=== PATIENT | male | born 1935 | race Caucasian/White ===

== ENCOUNTER 2017-08-16 08:46 | Outpatient (CLI) | payer MEDICARE, OTHER ==
--- NOTE | 2017-08-16 11:35 | XRAY Report ---
THREE-VIEW RIGHT SHOULDER: 08/16/2017 CLINICAL INDICATION: Biceps tendinitis. FINDINGS: Internal and external rotational views and a scapular Y view of the right shoulder demonst rate moderate glenohumeral and acromioclavicular osteoarthritis. There is no evidence of acute fract ure or dislocation. No radiopaque foreign body is seen in the soft tissues. IMPRESSION: MODERATE OSTEOARTHRITIS. JOB #: [id number] EXT JOB #:[id number]
--- NOTE | 2017-08-16 11:54 | Ultrasound Report ---
ULTRASOUND RIGHT LATERAL ABDOMINAL WALL: 08/16/2017 CLINICAL INDICATION: Swelling, mass. TECHNIQUE: Real-time scanning was performed with insurance healthcare representative static images obtained. FINDINGS: Ultrasound of the region of swelling identified by the patient was performed. There is no evidence of mass. Bowel gas obscures visualization. This may represent a large, wide-necked hernia , too large to image by ultrasound. If clinically warranted, CT may be helpful. IMPRESSION: NO DEFINITE EVIDENCE OF MASS. BOWEL GAS DOES LIMIT EVALUATION OF DEEPER STRUCTURES. TH IS MAY REPRESENT A LARGE, WIDE-MOUTHED HERNIA, TOO LARGE TO IMAGE BY ULTRASOUND. CT MAY BE HELPFUL I N FURTHER EVALUATION, IF CLINICALLY WARRANTED. JOB #: [id number] EXT JOB #:[id number]
== END 2017-08-16 08:47 | disposition home or self-care (01) ==
LOC: DI 08:46
PROVIDERS: ATTEND Internal Medicine
DX: R19.03 Right lower quadrant abdominal swelling, mass and lump (principal); M19.011 Primary osteoarthritis, right shoulder
CPT/HCPCS: 76705

== ENCOUNTER 2018-11-03 09:13 | Outpatient (CLI) | payer MEDICARE, OTHER ==
[2018-11-03] MEDS: BARIUM SULFATE 148 GM POWDER PO ONE ×3 (10:12→11:17)
[2018-11-03] MEDS ORDERED: BARIUM SULFATE 454 GM TUBE PO ONE (10:12)
--- NOTE | 2018-11-05 16:07 | XRAY Report ---
Reason: INTERMITTENT ASPIRATION Procedure Date: 11/03/2018 Accession Number: [id number] / [id number] Procedure: FL - Modified Barium Swallow W/SP CPT Code: FULL RESULT: EXAM: Modified Barium Swallow W/SP DATE: 11/03/2018 9:54 AM CLINICAL HISTORY: INTERMITTENT ASPIRATION COMPARISON: None. TECHNIQUE: Under the direction of speech pathology, patient swallowed various consistencies of barium under lateral fluoroscopic observation of the neck. Fluoroscopic exposure time: 0.52 minutes. Number of fluoroscopic images: 5 loops of cine fluoroscopy recorded. FINDINGS: Airway Protection: Normal epiglottic motion. No episodes of tracheal penetration or aspiration with all consistencies of barium. Other: None. Please also refer to full report from Speech Pathology. IMPRESSION: Normal modified barium swallow. No aspiration identified. RADIA
== END 2018-11-03 09:14 | disposition home or self-care (01) ==
LOC: DI 09:13
PROVIDERS: ATTEND Internal Medicine
DX: T17.928A Food in respiratory tract, part unspecified causing other injury, initial encounter (principal)
CPT/HCPCS: 74230; 92611; G8996; G8997; G8998

== ENCOUNTER 2020-04-22 07:46 | Outpatient (CLI) | payer MEDICARE, OTHER | END 2020-04-22 07:47 | disposition home or self-care (01) | LOC: DI 07:46 | PROVIDERS: ATTEND Internal Medicine | DX: I34.0 Nonrheumatic mitral (valve) insufficiency (principal); I37.1 Nonrheumatic pulmonary valve insufficiency; I27.20 Pulmonary hypertension, unspecified; I28.8 Other diseases of pulmonary vessels | CPT/HCPCS: 93306 ==

== ENCOUNTER 2022-07-15 08:00 | Outpatient (CLI) | payer MEDICARE, OTHER | END 2022-07-15 23:59 | disposition home or self-care (01) | LOC: LAB 08:00 | PROVIDERS: ATTEND Internal Medicine | DX: R19.7 Diarrhea, unspecified (principal) | CPT/HCPCS: 83630; 87045; 87046; 87177; 87328; 87427; 87493 ==

== ENCOUNTER 2023-05-24 14:07 | Outpatient (CLI) | payer MEDICARE, OTHER ==
--- NOTE | 2023-05-24 16:42 | XRAY Report ---
PROCEDURE: Chest 2 View X-Ray INDICATIONS: CHEST X-RAY TECHNIQUE: 2 views of the chest were acquired. COMPARISON: None. FINDINGS: Surgical changes and devices: None. Lungs and pleura: Patchy right basilar opacity. Mediastinum: Mediastinal contours appear normal. Heart size is normal. Bones and chest wall: No suspicious bony lesions. Overlying soft tissues appear unremarkable. IMPRESSION: Patchy right basilar opacity suggestive of pneumonia. Recommend interval follow-up imaging to documen t resolution and exclude presence of underlying mass lesion. Reviewed by: Yola Roberts MD on 05/24/2023 4:41 PM PDT Approved by: Yola Roberts MD on 05/24/2023 4:41 PM PDT Station ID: [id number]
== END 2023-05-24 14:08 | disposition home or self-care (01) ==
LOC: DI 14:07
PROVIDERS: ATTEND Internal Medicine
DX: I35.1 Nonrheumatic aortic (valve) insufficiency (principal); I34.0 Nonrheumatic mitral (valve) insufficiency; I27.20 Pulmonary hypertension, unspecified

== ENCOUNTER 2023-06-24 08:56 | Outpatient (CLI) | payer MEDICARE, OTHER ==
--- NOTE | 2023-06-24 11:48 | XRAY Report ---
PROCEDURE: Chest 2 View X-Ray INDICATIONS: POST PNA TECHNIQUE: 2 views of the chest were acquired. COMPARISON: 05/24/2023 FINDINGS: Surgical changes and devices: None. Lungs and pleura: Low lung volumes. Right mid and lower lung consolidation has worsened. There is al so suspected left lower lung infectious/inflammatory opacities. Suspected right effusion also present . Mediastinum: Heart size is within normal limits. The aorta is tortuous. Bones and chest wall: Degenerative changes. IMPRESSION: Worsening lung disease, most confluent in the right mid to lower lung region. Depending on clinical c ontext, consider radiographic versus CT follow-up. Reviewed by: Attila Bee MD on 06/24/2023 11:47 AM PDT Approved by: Attila Bee MD on 06/24/2023 11:47 AM PDT Station ID: [id number]
== END 2023-06-24 08:57 | disposition home or self-care (01) ==
LOC: DI.S 08:56
PROVIDERS: ATTEND Internal Medicine
DX: J18.9 Pneumonia, unspecified organism (principal)

== ENCOUNTER 2023-06-26 12:05 | Outpatient (CLI) | payer MEDICARE, OTHER ==
--- NOTE | 2023-06-26 16:03 | CT Report ---
PROCEDURE: CHEST WO INDICATIONS: PNEUMONIA TECHNIQUE: Noncontrast 1mm axial images were acquired from the pulmonary apices to the posterior costophrenic an gles. Axial 5 mm soft tissue kernel reconstructions were performed as well as 8 mm axial MIP and cor onal and sagittal 5 mm reformations. For radiation dose reduction, the following was used: automate d exposure control, adjustment of mA and/or kV according to patient size. COMPARISON: Radiographs 05/24/2023, 06/24/2023 FINDINGS: Image quality: Excellent. Lungs and pleura: Focal consolidation of the right middle lobe, which crosses to the minor fissure an d bulges the major fissure. Small bilateral pleural effusions. Peribronchovascular consolidation of t he right lower lobe, and is associated asymmetric right pleural thickening. Complete collapse of the right middle lobe airway. Mediastinum: Heart size is enlarged. Small pericardial effusion. No large vessel abnormality. Enlarge d bilateral mediastinal and hilar lymph nodes. Chest wall and lower neck: Thyroid is unremarkable. No axillary or supraclavicular adenopathy by size . Bones: No aggressive osseous abnormality. Upper Abdomen: 1.7 cm left adrenal nodule. A couple of ill-defined low attenuating lesions in the reggie er. For instance, the 0.9 cm hypoattenuating lesion in segment 7 (series 2, image 55). IMPRESSION: Focal consolidation right middle lobe, which crosses the minor fissure and bulges the major fissure, with complete collapse of the right middle lobe airways. These findings would be highly atypical for pneumonia (with the exception of Legionella pneumonia among the atypical type), and are more concerni ng for malignancy. Additionally, there is smooth interstitial thickening of the right lung, which may indicate mass effect upon the draining pulmonary veins, versus lymphangitic spread of disease. Suspected superimposed bronchopneumonia of the right lower lobe, given Vascular consolidation. Additionally, there is an indeterminate left adrenal nodule measuring 1.7 cm, and a couple of ill-def ined, low attenuating liver lesions. These findings may indicate metastatic disease. Bilateral mediastinal and hilar adenopathy. Small pericardial effusion. Small pleural effusions. Reviewed by: Slim Espinoza on 06/26/2023 4:01 PM PDT Approved by: Slim Espinoza on 06/26/2023 4:01 PM PDT Station ID: [id number]
== END 2023-06-26 12:06 | disposition home or self-care (01) ==
LOC: LAB 12:05
PROVIDERS: ATTEND Internal Medicine
DX: J18.9 Pneumonia, unspecified organism (principal); R91.8 Other nonspecific abnormal finding of lung field; R59.0 Localized enlarged lymph nodes; I31.39 Other pericardial effusion (noninflammatory); J90 Pleural effusion, not elsewhere classified
CPT/HCPCS: 36415; 82565